=== PATIENT | female | born 1995 | race African-American/Black ===

== ENCOUNTER 2017-07-03 12:34 | Emergency (ER) | payer MEDICAID ==
[~2017-07-03] VITALS: Ht 165.1 cm; Wt 59.0 kg
[~2017-07-03 12:34] MED LIST: ALPR2TAB2 PO
[2017-07-03 12:35] VITALS: BP 118/76
== END 2017-07-03 14:25 | disposition left against medical advice (07) ==
LOC: ER 12:43
DX: J02.9 Acute pharyngitis, unspecified (principal); Z53.21 Procedure and treatment not carried out due to patient leaving prior to being seen by health care provider

== ENCOUNTER 2019-12-16 11:52 | Emergency (ER) | payer MEDICAID ==
[~2019-12-16] VITALS: Ht 165.1 cm; Wt 54.0 kg
[2019-12-16 12:05] VITALS: BP 116/73
== END 2019-12-16 14:06 | disposition home or self-care (01) ==
LOC: ER 11:52
DX: S81.812A Laceration without foreign body, left lower leg, initial encounter (principal); Z88.0 Allergy status to penicillin; Z79.899 Other long term (current) drug therapy; X58.XXXA Exposure to other specified factors, initial encounter; Y93.89 Activity, other specified; Y92.89 Other specified places as the place of occurrence of the external cause; Y99.8 Other external cause status
CPT/HCPCS: 99281; 99282